=== PATIENT | female | born 2000 | race Hispanic/Latino ===

== ENCOUNTER 2019-11-16 20:42 | Emergency (ER) | payer OTHER ==
[2019-12-30 12:51] LABS: APPEARANCE, URINE MANUAL CLEAR (CLEAR); BACTERIA, URINE NONE SEEN; BILIRUBIN, URINE MANUAL NEGATIVE (NEGATIVE); BLOOD URINE MANUAL POSITIVE (NEGATIVE); COLOR, URINE MANUAL LT YELLOW (YELLOW); GLUCOSE, URINE (UA) MANUAL NEGATIVE (NEGATIVE); HYALINE CAST, URINE NONE SEEN /lpf (0-1); KETONE, URINE MANUAL NEGATIVE (NEGATIVE); LEUKOCYTE ESTERASE, URINE MAN POSITIVE (NEGATIVE); NITRITE, URINE MANUAL NEGATIVE (NEGATIVE); PH,URINE MAN 6.5 UNITS (5.0 - 7.0); PROTEIN, URINE MANUAL NEGATIVE (NEGATIVE); SQUAMOUS EPITHELIAL CELL URINE SMALL AMOUNT /hpf (SMALL AMT); UROBILINOGEN, URINE MANUAL NORMAL (NORMAL)
[2019-12-30 20:46] LABS: BASO % 0.6 % (0.0-1.0); EOS # 0.1 10^3/uL (0.0-0.5); EOS % 1.4 % (0.0-3.0); HEMOGLOBIN 10.6 g/dl (12.0-15.5); LYMPH # 1.6 10^3/uL (1.5-5.0); LYMPH % 25.3 % (24.0-44.0); MEAN CORPUSCULAR HEMOGLOBIN 27.5 pg (27.0-33.0); MEAN CORPUSCULAR HGB CONC 32.1 g/dl (32.0-36.5); MEAN CORPUSCULAR VOLUME 85.7 fl (80.0-96.0); MONO # 0.4 10^3/uL (0.0-0.8); NEUTROPHILS # 4.2 10^3/uL (1.5-8.5); NEUTROPHILS % 65.5 % (36.0-66.0); PLATELET COUNT, AUTOMATED 233 10^3/uL (150-450); RED BLOOD COUNT 3.85 10^6/uL (4.00-5.40); WHITE BLOOD COUNT 6.3 10^3/uL (4.0-10.0)
== END 2019-11-16 22:55 | disposition home or self-care (01) ==
LOC: M ED 20:42
DX: O26.851 Spotting complicating pregnancy, first trimester (principal); O34.81 Maternal care for other abnormalities of pelvic organs, first trimester; Z3A.00 Weeks of gestation of pregnancy not specified
CPT/HCPCS: 36415; 76801; 76817; 80048; 81000; 84702; 85025; 86850; 86901; 87086; 93976; 96372; 99284; J2790

== ENCOUNTER 2020-09-12 18:52 | Outpatient (CLI) | payer OTHER ==
[~2020-09-12] VITALS: Ht 170.2 cm; Wt 79.2 kg
[2020-09-12 19:18] VITALS: BP 122/76
[2020-09-12] MEDS ORDERED: PRENTAB9 PO (20:08)
[2020-09-12] MEDS ORDERED: IRON325T9 PO (20:09)
[2020-09-12] MEDS ORDERED: VITA500C24 PO (20:09)
--- NOTE | 2020-09-12 21:47 | IPNPDOC ---
Obstetrical Progress Note Date of Service Sep 12, 2020 Subjective 20yo @39+3 presenting to triage for c/o contractions, denies bleeding, lof, states +FM Objective Vital Signs Date Time Temp Pulse Resp B/P (MAP) Pulse Ox O2 Delivery O2 Flow Rate FiO2 09/12/20 19:18 98.2 73 16 122/76 (91) Assessment Heart Rate (FHR): 120 Variability: Moderate Accelerations: Positive Decelerations: None Heart Rate Tracing: Category I Tocometer Contractions: Yes Frequency: regular, every 1-3 min. Duration: greater than 60 seconds Strength: palpated as moderate, resting tone palp/soft Sterile Vaginal Examination Dilation: 2cm (-3) Effacement (%): 70% Station: -2 Cervical Consistency: Medium Cervical Position: Posterior Postion/Presentation: Cephalic presentation Assessment and Plan Age: 20 : 2 Term: 1 Pre-term: 0 Abortions: 0 Livin EGA at Admission: 39 (+3) Status: Reassuring Group B Streptococcus: Positive Anticipate: Vaginal Delivery Additional Comments Pt educated on options to rest with medications in the hospital and recheck vs. go home. Reviewed early labor, expectations comfort measures and reasons to return. Pt stated desire for IOL. Discussed normal healthy progress without current indication for induction and possible option for membrane sweep. Pt requested exam with membrane sweep. The cervix changed to 4/80/-2, posterior, soft with exam. Reviewed options for medicated rest and patient accepted. Continuous monitoring with efm x2, oral hydration, may eat a light snack prior to medicated rest, re-evaluate as indicated SEAN LEO CNM Sep 12, 2020 21:47
[2020-09-12] MEDS ORDERED: PROMETHAZINE 25 MG TAB PO ONE (22:00)
[2020-09-12] MEDS ORDERED: diphenhydrAMINE 25MG CAP PO ONE (22:00)
[2020-09-12 22:34] VITALS: BP 95/51
[2020-09-13 06:28] VITALS: BP 111/75
--- NOTE | 2020-09-13 06:38 | IPNPDOC ---
Text Note Date of Service The patient was seen on 09/13/20. NOTE Pt rested well with 50mg po benadryl. Contractions spaced while sleeping to 8-9 min apart. VSS RNST, fhr 120, mod variability, +accel, -decel, jamal q8-9 min cervical exam /-2 posterior Pt education for reasons to return for care, signs of labor, FKC, comfort measures, and expectations reviewed. Keep scheduled 40wk OB appt VS,Fishbone, I+O VS, Fishbone, I+O Vital Signs Date Time Temp Pulse Resp B/P (MAP) Pulse Ox O2 Delivery O2 Flow Rate FiO2 09/12/20 22:34 98.0 78 16 95/51 (66) SEAN LEO CNM Sep 13, 2020 06:38
== END 2020-09-13 06:39 | disposition home or self-care (01) ==
LOC: M LDO 18:52
PROVIDERS: ATTEND Registered Nurse
DX: O47.1 False labor at or after 37 completed weeks of gestation (principal); Z3A.39 39 weeks gestation of pregnancy
CPT/HCPCS: 59025; G0378; G0463